=== PATIENT | female | born 1960 | race African-American/Black ===

== ENCOUNTER 2017-05-04 16:08 | Emergency (ER) | payer MEDICAID ==
[~2017-05-04] VITALS: Ht 162.6 cm; Wt 97.0 kg
[2017-05-04] MEDS ORDERED: SODIUM CHLORIDE 0.9% 1,000 ML IV ONE (17:49)
[2017-05-04] MEDS ORDERED: ONDANSETRON HCL 4MG/2ML VIAL IV STA (17:49)
[2017-05-04] MEDS ORDERED: MORPHINE SULFATE 4 MG/ML CPJ (NOT FOR IM USE) IV STA (17:49)
[2017-05-04 18:47] LABS: BASOPHILS % 0.9 % (0.0-2.0); EOSINOPHILS % 4.6 % (0.0-5.0); HEMOGLOBIN. 12.8 g/dL (12.0-16.0); LYMPHOCYTES % 31.5 % (20.0-50.0); MEAN CORPUSCULAR HEMOGLOBIN 30.5 pg (28.0-32.0); MEAN CORPUSCULAR VOLUME 90.9 fL (81.0-99.0); MEAN PLATELET VOLUME 10.7 fl (7.4-10.4); MONOCYTES % 11.1 % (2.0-8.0); NEUTROPHILS % 51.9 % (40.0-76.0); PLATELET 205 x1000/uL (130-400); RED BLOOD CELL COUNT 4.19 mill/uL (4.2-5.4); RED CELL DISTRIBUTION WIDTH 15.1 % (11.6-14.6)
[2017-05-04 19:00] LABS: CHLORIDE 109 mEq/L (98-107); ETHANOL BLOOD < 10 mg/dL
[2017-05-04 19:02] LABS: TROPONIN I < 0.02 ng/mL (0.00-0.04)
[2017-05-04] MEDS ORDERED: MORPHINE SULFATE 4 MG/ML CPJ (NOT FOR IM USE) IV ONE (20:00)
[2017-05-04] MEDS ORDERED: ONDANSETRON HCL 4MG/2ML VIAL IV ONE (20:00)
[2017-05-04 20:57] VITALS: BP 155/75
== END 2017-05-04 21:00 | disposition home or self-care (01) ==
LOC: ER 17:33
DX: S93.402A Sprain of unspecified ligament of left ankle, initial encounter (principal); M77.32 Calcaneal spur, left foot; J45.909 Unspecified asthma, uncomplicated; I10 Essential (primary) hypertension; W10.9XXA Fall (on) (from) unspecified stairs and steps, initial encounter
CPT/HCPCS: 29515; 36415; 73610; 80053; 84484; 85025; 96361; 96374; 96375; 96376; 99285; G0482; J2270; J2405; J7030; J7040; Z7610

== ENCOUNTER 2018-04-10 12:41 | Inpatient (IN) | payer MEDICAID ==
[~2018-04-10] VITALS: Ht 165.1 cm; Wt 90.7 kg
[2018-04-10] MEDS ORDERED: SODIUM CHLORIDE 0.9% 1,000 ML IV ONE (16:54)
[2018-04-10] MEDS ORDERED: MORPHINE SULFATE 4 MG/ML CPJ (NOT FOR IM USE) IV STA (16:54)
[2018-04-10] MEDS ORDERED: ONDANSETRON HCL 4MG/2ML INJ IV STA (16:54)
[2018-04-10 17:51] LABS: BASOPHILS % 0.3 % (0.0-2.0); EOSINOPHILS % 0.6 % (0.0-5.0); HEMATOCRIT. 36.9 % (36.0-48.0); HEMOGLOBIN. 12.3 g/dL (12.0-16.0); LYMPHOCYTES % 12.9 % (20.0-50.0); MEAN CORPUSCULAR HEMOGLOBIN 30.8 pg (28.0-32.0); MEAN CORPUSCULAR VOLUME 92.1 fL (81.0-99.0); MEAN PLATELET VOLUME 9.3 fl (7.4-10.4); MONOCYTES % 12.9 % (2.0-8.0); NEUTROPHILS % 73.3 % (40.0-76.0); PLATELET 335 x1000/uL (130-400); RED CELL DISTRIBUTION WIDTH 14.3 % (11.6-14.6)
[2018-04-10 17:53] LABS: CHLORIDE 103 mEq/L (98-107); HCG SCREEN NEGATIVE; PROTHROMBIN TIME 10.5 sec (9.1-11.1)
[2018-04-10] MEDS ORDERED: ALBUTEROL (0.083%) 2.5MG/3ML NEB HHN ONE (18:15)
[2018-04-10] MEDS ORDERED: IPRATROPIUM BROMIDE (0.02%) 0.5MG/2.5ML NEB HHN ONE (18:15)
[2018-04-10 18:24] LABS: CLARITY URINE CLOUDY (CLEAR); COLOR URINE DARK YELLOW (YELLOW); KETONES URINE TRACE (NEGATIVE); LEUKOCYTE ESTERASE URINE 3+ (NEGATIVE); NITRITE URINE NEGATIVE (NEGATIVE); OCCULT BLOOD URINE NEGATIVE (NEGATIVE); PROTEIN URINE 2+ (NEGATIVE); SPECIFIC GRAVITY URINE 1.026 (1.005-1.030)
[2018-04-10] MEDS ORDERED: CEFTRIAXONE 1 G PREMIX 50 ML IV ONE (18:45)
[2018-04-10] MEDS ORDERED: METHYLPREDNISOLONE SOD SUCC 125 MG/2 ML VIAL IV ONE (18:45)
[2018-04-10] MEDS ORDERED: MAGNESIUM 1 G PREMIX 100 ML IV ONE (18:45)
[2018-04-10] MEDS ORDERED: ACETAMINOPHEN 325MG TABLET PO ONE (21:15)
[2018-04-10] MEDS ORDERED: IPRATROPIUM BROMIDE (0.02%) 0.5MG/2.5ML NEB HHN STA (21:49)
[2018-04-10] MEDS ORDERED: ALBUTEROL (0.083%) 2.5MG/3ML NEB HHN STA (21:49)
[2018-04-10] MEDS ORDERED: MAGNESIUM/ALUMINUM HYDROXIDE/SIMETHICONE 30ML UDC PO PRN (23:45)
[2018-04-10] MEDS ORDERED: ONDANSETRON HCL 4MG/2ML INJ IV PRN (23:45)
[2018-04-10] MEDS ORDERED: CEFTRIAXONE 1 G PREMIX 50 ML IV SCH (23:45)
[2018-04-10] MEDS ORDERED: DOCUSATE SODIUM 100MG CAPSULE PO PRN (23:45)
[2018-04-10] MEDS ORDERED: ACETAMINOPHEN 325MG TABLET PO PRN (23:45)
[2018-04-10] MEDS ORDERED: CLONIDINE 0.1MG TABLET PO PRN (23:45)
[2018-04-11] VITALS (7 sets, daily range): BP systolic 130–159; BP diastolic 85–97
[2018-04-11 01:01] LABS: CHLORIDE 104 mEq/L (98-107)
[2018-04-11] MEDS: HYDROCODONE/ACETAMINOPHEN 5/325MG TABLET PO PRN ×2 (03:06→15:12)
[2018-04-11] MEDS: AZITHROMYCIN 500 MG TABLET PO SCH (05:00)
[2018-04-11] MEDS ORDERED: POTASSIUM CHLORIDE 20MEQ TABLET SR PO NR (06:15)
[2018-04-11 07:57] LABS: HEMOGLOBIN. 11.6 g/dL (12.0-16.0); MEAN CORPUSCULAR HEMOGLOBIN 30.7 pg (28.0-32.0); MEAN CORPUSCULAR VOLUME 92.2 fL (81.0-99.0); MEAN PLATELET VOLUME 9.2 fl (7.4-10.4); PLATELET 351 x1000/uL (130-400); RED BLOOD CELL COUNT 3.79 mill/uL (4.2-5.4); RED CELL DISTRIBUTION WIDTH 14.2 % (11.6-14.6)
[2018-04-11 08:18] LABS: LDL CHOLESTEROL 71 mg/dL (5-100)
[2018-04-11 08:23] LABS: CREATINE KINASE 114 IU/L (26-192); HDL CHOLESTEROL 38 mg/dL (40-59)
[2018-04-11 08:24] LABS: CREATINE KINASE MB FRACTION 1.3 ng/mL (0.5-3.6)
[2018-04-11] MEDS: ENOXAPARIN 30MG/0.3ML SYR SUBCUT SCH ×2 (08:34→20:27)
[2018-04-11 10:40] LABS: *COCAINE SCREEN URINE NEGATIVE (NEGATIVE); METHADONE URINE SCREEN NEGATIVE (NEGATIVE); OPIATES URINE SCREEN PRESUMTIVE POSITIVE (NEGATIVE); PHENCYCLIDINE URINE SCREEN NEGATIVE (NEGATIVE)
[2018-04-11 10:41] LABS: *AMPHETAMINES SCREEN URINE NEGATIVE (NEGATIVE); *BENZODIAZEPINES SCREEN URINE NEGATIVE (NEGATIVE)
[2018-04-11 10:42] LABS: *BARBITURATES SCREEN URINE NEGATIVE (NEGATIVE)
[2018-04-11 10:44] LABS: CANNABINOID URINE SCREEN NEGATIVE (NEGATIVE)
[2018-04-11] MEDS ORDERED: GUAIFENESIN-DM 200MG-20MG/10ML UDC PO PRN (12:30)
[2018-04-11 14:16] LABS: PLATELET ESTIMATE NORMAL
[2018-04-11] MEDS ORDERED: MONTELUKAST SODIUM 10MG TABLET PO SCH (17:00)
[2018-04-11 17:12] LABS: CREATINE KINASE 96 IU/L (26-192)
[2018-04-11 17:13] LABS: CREATINE KINASE MB FRACTION 1.1 ng/mL (0.5-3.6)
[2018-04-11 17:20] LABS: T4 FREE 1.35 ng/dL (0.76-1.46)
[2018-04-11] MEDS: BUDESONIDE 0.5MG/2ML NEB HHN SCH ×2 (17:30→21:07)
[2018-04-11] MEDS ORDERED: CEFTRIAXONE 1 G PREMIX 50 ML IV SCH (19:00)
[2018-04-11] MEDS: IPRATROPIUM/ALBUTEROL 0.5-3(2.5)MG/3ML NEB INH PRN (21:06)
[2018-04-12] VITALS: BP 164/81
[2018-04-12 04:00] VITALS: BP 133/70
[2018-04-12] MEDS: AZITHROMYCIN 500 MG TABLET PO SCH (05:30)
[2018-04-12 07:10] LABS: BASOPHILS % 0.3 % (0.0-2.0); EOSINOPHILS % 0.1 % (0.0-5.0); HEMATOCRIT. 34.7 % (36.0-48.0); HEMOGLOBIN. 11.5 g/dL (12.0-16.0); MEAN CORPUSCULAR HEMOGLOBIN 30.7 pg (28.0-32.0); MEAN CORPUSCULAR VOLUME 92.6 fL (81.0-99.0); MEAN PLATELET VOLUME 9.2 fl (7.4-10.4); MONOCYTES % 12.2 % (2.0-8.0); NEUTROPHILS % 72.4 % (40.0-76.0); PLATELET 360 x1000/uL (130-400); RED BLOOD CELL COUNT 3.75 mill/uL (4.2-5.4); RED CELL DISTRIBUTION WIDTH 14.1 % (11.6-14.6)
[2018-04-12 08:06] VITALS: BP 159/101
[2018-04-12] MEDS: ENOXAPARIN 30MG/0.3ML SYR SUBCUT SCH (08:37)
[2018-04-12] MEDS: IPRATROPIUM/ALBUTEROL 0.5-3(2.5)MG/3ML NEB INH PRN (09:05)
[2018-04-12] MEDS: BUDESONIDE 0.5MG/2ML NEB HHN SCH (09:05)
[2018-04-12 09:20] VITALS: BP 145/94
[2018-04-12 12:00] VITALS: BP 152/81
[2018-04-12] MEDS: HYDROCODONE/ACETAMINOPHEN 5/325MG TABLET PO PRN (12:07)
[2018-04-12 12:24] VITALS: BP 145/80
== END 2018-04-12 15:55 | disposition home or self-care (01) | DRG 720 ==
LOC: ER 12:41 → 7WST 21:38 → ENRESERV 04-11 00:18
PROVIDERS: ADMIT Internal Medicine; ATTEND Internal Medicine
DX: A41.9 Sepsis, unspecified organism (principal); J96.00 Acute respiratory failure, unspecified whether with hypoxia or hypercapnia; E43 Unspecified severe protein-calorie malnutrition; N39.0 Urinary tract infection, site not specified; I10 Essential (primary) hypertension; J06.9 Acute upper respiratory infection, unspecified; E66.9 Obesity, unspecified; J45.901 Unspecified asthma with (acute) exacerbation; F17.200 Nicotine dependence, unspecified, uncomplicated; Z88.6 Allergy status to analgesic agent; Z68.33 Body mass index [BMI] 33.0-33.9, adult
CPT/HCPCS: 36415; 71045; 74176; 80048; 80061; 80305; 82550; 82553; 83605; 83735; 83880; 84439; 84443; 84481; 84484; 84703; 87070; 87804; 93005; 93306; 93970; 94640; 96361; 96374; 96375; 99285; J0696; J1650; J2270; J2405; J2930; J3475; J7030; J7050; J7611; J7620; J7626

== ENCOUNTER 2022-02-09 09:36 | Emergency (ER) | payer MEDICAID ==
[~2022-02-09] VITALS: Ht 175.3 cm; Wt 99.0 kg
[2022-02-09 09:56] VITALS: BP 158/95
[2022-02-09] MEDS ORDERED: FLUORESCEIN SODIUM 1MG/STRIP LEFTEYE ONE (14:00)
[2022-02-09] MEDS ORDERED: TETRACAINE 0.5% OPHTH DROPS 4ML LEFTEYE ONE (14:00)
[2022-02-09] MEDS ORDERED: CIPR5DRO LEFTEYE (14:47)
[2022-02-09] MEDS ORDERED: NAPR-681 MT (14:47)
== END 2022-02-09 15:13 | disposition home or self-care (01) ==
LOC: ER 09:36
DX: H16.002 Unspecified corneal ulcer, left eye (principal); I10 Essential (primary) hypertension; J45.909 Unspecified asthma, uncomplicated
CPT/HCPCS: 99283